=== PATIENT | female | born 1970 | race Asian ===

== ENCOUNTER → 2023-09-16 12:01 | Outpatient (REF) | payer BC, SELFPAY | LOC: HWWDC 12:01 | PROVIDERS: ATTENDING PHYSICIAN Physician Assistant Medical | DX: Z12.31 Encounter for screening mammogram for malignant neoplasm of breast (principal) | CPT/HCPCS: 77063; 77067 ==

== ENCOUNTER → 2024-04-01 14:10 | Outpatient (REF) | payer BC, SELFPAY | LOC: RAD 14:10 | PROVIDERS: ATTENDING PHYSICIAN Emergency Medicine | DX: S93.402A Sprain of unspecified ligament of left ankle, initial encounter (principal) | CPT/HCPCS: 73610 ==

== ENCOUNTER 2024-07-02 12:45 | Day surgery (SDC) | payer BC, SELFPAY ==
[2024-07-02] VITALS (13 sets, daily range): BP systolic 116–188; BP diastolic 58–89; BMI 30.2
[2024-07-02 04:08] LABS: % Basophils 0.4 % (0-2); % Eosinophils 2.1 % (0-6); % Immature Granulocytes 0.3 % (0-0.5); % Monocytes 4.9 % (1.7-9.3); % Neutrophils 82.3 % (42.2-75.2); Absolute Basophils 0.1 10^3/uL (0-0.2); Absolute Eosinophils 0.3 10^3/uL (0-0.7); Absolute Lymphocytes 1.3 10^3/uL (1.2-3.4); Absolute Monocytes 0.7 10^3/uL (0.1-0.6); Absolute Neutrophils 10.9 10^3/uL (1.4-6.5); Hematocrit 41.2 % (37.0-47.0); Hemoglobin 13.3 g/dL (12.0-16.0); Mean Corp Hgb Conc. 32.3 g/dL (33.0-37.0); Mean Corpuscular Hgb 26.4 pg (27.0-31.0); Mean Corpuscular Volume 81.7 fL (81.0-99.0); Mean Platelet Volume 11.3 fL (7.4-10.4); Nucleated Red Blood Cells % 0 %; Platelet Count 225 10^3/uL (130-400); Red Blood Cell Count 5.04 10^6/uL (4.20-5.40); Red Cell Dist. Width 14.1 % (11.5-14.5); White Blood Cell Count 13.2 10^3/uL (4.8-10.8)
[2024-07-02] MEDS: ZOFRAN 4 MG IV (04:08)
[2024-07-02] MEDS: DILAUDID 1 MG IV (04:12)
[2024-07-02 04:18] LABS: HCG, Serum Qualitative Screen Negative
[2024-07-02 04:22] LABS: ALT (SGPT) 16 U/L (0-35); AST (SGOT) 22 U/L (14-36); Albumin 4.8 g/dl (3.5-5.0); Alkaline Phosphatase 84 U/L (38-126); Blood Urea Nitrogen 20 mg/dl (7-17); Calcium 9.3 mg/dl (8.4-10.2); Carbon Dioxide 25 mmol/L (22-30); Chloride 103 mmol/L (98-107); Glucose 157 mg/dl (70-99); Lipase 96 U/L (23-300); Potassium 3.9 mmol/L (3.5-5.1); Sodium 140 mmol/L (135-145); Total Bilirubin 0.6 mg/dl (0.2-1.3); Total Protein 8.4 g/dl (6.3-8.2); eGFR > 60.00
[2024-07-02 04:29] LABS: Lactic Acid 1.7 mmol/L (0.7-2.0)
[2024-07-02] MEDS: DILAUDID 0.5 MG IV ×2 (06:51→09:36)
[2024-07-02] MEDS: NSS 1000 IV ×2 (06:53→09:25)
--- NOTE | 2024-07-02 07:05 | ED.GENMED ---
History of Present Illness
General
Chief Complaint: Abdominal Pain
Source: patient
Exam Limitations: none
Time Seen by Provider: 07/02/24 06:03
Nursing documentation reviewed up to this point in time: agreed with
History of Present Illness
History of Present Illness:
This is a 54-year-old woman who has history of eczema maintained on Humira. She presents with 3-day history of intermittent moderate upper abdominal pain that is most noted at nighttime waking her from sleep. Upper abdominal pain accompanied with
nausea, intermittent burping and a sense of abdominal bloating, fullness in her upper abdomen. She does note sporadic similar episodes in the past but no previous evaluations and pain she is experiencing tonight is much worse than any other
episodes. She denies chest pain or back pain, no fever no chills, no diarrhea or constipation.
No definitive aggravating or relieving factors.
No previous abdominal surgeries other than D and E.
Last menstrual period several months ago.
Past History
Past History
ED Past Medical History: Other (Eczema)
ED Past Surgical History: Gynecological (D and E)
Social History
Tobacco: Non-smoker
Alcohol: None
Personal:
Living: with family
Employment: Employed
Family History
Family History: Other (Noncontributory)
Phy Exam
Physical Exam
Physical Exam:
GENERAL: 54-year-old woman appears her stated age, awake and alert, appears in moderate distress related to pain. Cooperative.
EYE: pupils equal and reactive. anicteric
NECK: Supple, nontender, no meningismus, no significant adenopathy.
ENT: oral mucosa is moist. No rhinorrhea.
CARDIAC: Regular rate and rhythm. no murmur.
LUNGS: Clear breath sounds bilaterally, no acute respiratory distress, no wheezes/rales/rhonchi
ABDOMEN: Soft, mildly distended with moderate focal tenderness epigastric region accompanied with focal firm abdominal fullness at the epigastric region. No rigidity nor rebound. No cvat. Mildly hyperactive bowel sounds.
NEUROLOGICAL: Alert and oriented x3, no focal neuro deficits.
SKIN: Warm and dry, normal color, mild generalized eczematous rash.
MUSCULOSKELETAL: No C/C/E. peripheral pulses are full and equal b/l. No palpable tenderness.
PSYCH: Normal and appropriate interaction.
Sepsis
Sepsis Screening
Sepsis Assessment: Sepsis Ruled Out
Sepsis Screen
Sepsis Screen: Sepsis Ruled Out
Date: 07/02/24
Time: 08:11
Course
Orders/Labs/Results
Orders:
Orders
07/02/24 03:40
Cardiac Monitoring- Treatment ONCE
IV Insert/Care/Rem.- Treatment PRN
Test Result ONCE
07/02/24 03:41
Electrocardiogram (*1) Urgent
Reason for Study: Abdominal Pain
EKG- Treatment ONCE
07/02/24 03:56
Complete Blood Count/With Diff Urgent
Comprehensive Metabolic Panel Urgent
HCG, Serum Qualitative Screen Urgent
Comment: Notify provider if positive test present
Lactate Level [Lactic Acid] Urgent
Lipase Urgent
07/02/24 04:03
HYDROmorphone [Dilaudid] 1 mg IV NOW STA
Ondansetron Injectable [Zofran] 4 mg IV NOW STA
07/02/24 06:13
0.9% Sodium Chloride 1000 ml [Nss] 1,000 ml IV BOLUS
HYDROmorphone [Dilaudid] 0.5 mg IV NOW STA
07/02/24 06:14
CT Abd/pelvis W Iv Cont Urgent
Comment:
Reason For Exam: severe upper abd pain
07/02/24 07:19
US Abdomen Complete/Upper Urgent
Reason For Exam: acute upper abd pain, gall stone
07/02/24 07:30
Urinalysis Reflex To Culture Urgent
Date Specimen was Collected: 07/02/24
Time Specimen was Collected: 03:40
07/02/24 08:08
HYDROmorphone [Dilaudid] 0.5 mg IV Q3HPRN PRN
Ondansetron Injectable [Zofran] 4 mg IV Q6HPRN PRN
Zosyn 3.375 grams IVPB NOW Piperacillin/Tazo 3.375 Gram [Zosyn] 3.375 gram in 50 ml IV NOW
07/02/24 08:08
0.9% Sodium Chloride 1000 ml [Nss] 1,000 ml IV 150 mls/hr
Abnormal Lab Results
07/02/24
03:56
WBC 13.2 H 10^3/uL
(4.8-10.8)
MCH 26.4 L pg
(27.0-31.0)
MCHC 32.3 L g/dL
(33.0-37.0)
MPV 11.3 H fL
(7.4-10.4)
Absolute Neuts (auto) 10.9 H 10^3/uL
(1.4-6.5)
Absolute Monos (auto) 0.7 H 10^3/uL
(0.1-0.6)
Neutrophils % 82.3 H %
(42.2-75.2)
Lymphocytes % 10.0 L %
(20.5-51.1)
BUN 20 H mg/dl
(7-17)
Glucose 157 H mg/dl
(70-99)
Total Protein 8.4 H g/dl
(6.3-8.2)
07/02/24 03:56
07/02/24 03:56
Vital Signs
Initial and Last Documented VS:
Initial Vital Signs
Temp Pulse Resp BP Pulse Ox
98.1 F 50 20 182/84 100
07/02/24 02:29 07/02/24 02:29 07/02/24 02:29 07/02/24 02:29 07/02/24 02:29
Last Documented Vital Signs
Temp Pulse Resp BP Pulse Ox
97.4 F 64 19 149/85 100
07/02/24 04:00 07/02/24 06:45 07/02/24 06:45 07/02/24 07:23 07/02/24 07:23
MDM/Problems Addressed
Differential Diagnosis Includes:
Concern for acute biliary colic/cholecystitis, acute gastritis, gastric outlet obstruction, pancreatitis, colitis. ACS is much less likely.
Patient is somewhat more comfortable after IV dose of Dilaudid and Zofran. Will give additional IV pain medications, IV fluids and plan for CT abdomen and pelvis.
Labs thus far reveal mildly elevated white blood cell count of 13
Chemistries are unremarkable.
hCG is negative.
EKG is unremarkable, normal sinus rhythm, normal axis, normal intervals, no acute ST-T wave abnormality.
*Radiology
Radiology exam reviewed: radiology read reviewed
*Pulse Oximetry
Patient hypoxic: no
*EKG
Interpreted by ED Provider?: Yes
Interpretation: normal
Comparison EKG: no comparison EKG present
Rate: normal
Rhythm: sinus
[place]: normal axis
Interval: normal interval
QRS Pattern: normal QRS
Ischemia: no ischemia
*Tanning Consultant Interpretation
Rate: normal
Interpretation: normal
Rhythm: sinus
*Critical Care Note
Total Time (30-74mins, 75-104mins- exclusive of procedures): Not Applicable
Update Note
Update Note:
08:05
Patient is much more comfortable after additional Dilaudid but continues with significant right upper quadrant, epigastric pain with palpation.
CAT scan shows a large gallstone in the neck of the gallbladder with distended gallbladder, gallbladder wall thickening consistent with acute cholecystitis.
Will check ultrasound for completeness sake.
General surgery has been notified, will evaluate at bedside.
Will initiate IV antibiotics for acute cholecystitis.
ED Attending Note
-
Portions of this chart may have been created with voice recognition software.� Occasional wrong word or��sound alike� substitutions may have occurred due to the inherent limitations of voice recognition software.
Discharge Plan
Departure
Patient Disposition: Admit
Date of Disposition: 07/02/24
Time of Disposition: 08:12
Admit to: Med/Surg
Admit to doctor: Hu
Presentation/result/management discussed w/ accepting MD/DO: General surgery
Condition: Serious
Discharge Problem:
Acute calculous cholecystitis
Referrals:
Delores Geller PA-C [Family Provider] -
Interventions
Interventions:
*Risk Screen - Suicide Last Done: 07/02/24 02:29
*General Assessment Last Done: 07/02/24 02:29
*Neglect/Abuse Screening Last Done: 07/02/24 02:29
ED- Fall Risk Assessment Last Done: 07/02/24 04:36
*ED COVID-19 Vaccine History Last Done: 07/02/24 02:29
JL-Gaehby-Nevckcsmag Assessment Last Done: 07/02/24 04:36
Discharge Date and Time
Print Language: ANGUILLAN
[2024-07-02 08:37] LABS: Urine Albumin Negative (Neg - Trace); Urine Bilirubin Negative (Negative); Urine Character Clear (Clear); Urine Color Yellow; Urine Glucose 1+ (Negative); Urine Ketone 1+ (Negative); Urine Leukocyte 1+ (Negative); Urine Nitrite Negative (Negative); Urine Occult Blood 1+ (Negative); Urine Urobilinogen Negative (Neg - 1+)
[2024-07-02] MEDS: ZOSYN 50 IV (09:25)
[2024-07-02 10:08] LABS: Urine Bacteria Few (Negative); Urine Red Blood Cell 0-2 /HPF (0-2); Urine Squamous Cell >30 /LPF (Few); Urine White Cell 0-2 /HPF (0-5)
--- NOTE | 2024-07-02 10:39 | HPS.HSE ---
Family Physician
-
Family Physician: Delores Geller
Chief Complaint
-
RUQ pain
History of Present Illness
Ms Boland is a 54 yo female with a h/o eczema and prior D&C who presents through the ED with intermittent RUQ pain for the past 3 days usually in the evenings that worsened and persisted since last night accompanied by nausea and vomiting. She notes a
prior episode of similar pain around [place] which resolved and was self limiting. She denies fevers or chills. She does note one episode of diarrhea yesterday but otherwise notes no stool changes. On exam, she is significantly tender to the RUQ.
Medical History
Past Medical History
Past Medical History: Reports Other (Eczema)
Past Surgical History: Reports Gynocological (D&C)
Social History
Tobacco: Non-smoker
Alcohol: Occasional
Personal:
Living: With Family
Employment: Employed (Pre-K teacher)
Family History
Family History: Cancer (Breast)
Allergies / Home Medications
Allergies reflects when Allergies were last updated in [facility].
Home Medications with original date entered in [facility]
Allergy/Medication List:
Home meds: Dupixent [id number]
Patient Allergies
Allergy/AdvReac Type Severity Reaction Status Date / Time
latex Allergy Intermediate Rash Verified 07/02/24 02:28
sulfamethoxazole Allergy Mild Rash Verified 07/02/24 10:40
[From Bactrim]
trimethoprim [From Bactrim] Allergy Mild Rash Verified 07/02/24 10:40
lactase [From Dairy Aid] Allergy Unknown Verified 07/02/24 02:28
Review of Systems
-
History Source: Patient and Family
A 12 point ROS was completed and negative except as noted: Yes
Physical Exam
Vital Signs
Vital Signs
Temp Pulse Resp BP Pulse Ox
97.4 F 64 19 158/89 100
07/02/24 04:00 07/02/24 06:45 07/02/24 06:45 07/02/24 08:00 07/02/24 08:00
Physical Exam
General: Well Developed and Well Nourished
HEENT: Moist mucous membranes
Respiratory: Non Labored Respirations
GI: Soft, Non Distended and Tender (RUQ)
Skin: Warm, Dry and Rash (to face)
Neuro: Awake, Alert and AO x 3
Psych: Calm
Laboratory Results
-
07/02/24 03:56
07/02/24 03:56
Laboratory Results
Lactic Acid 1.7 mmol/L (0.7-2.0) 07/02/24 03:56
Total Bilirubin 0.6 mg/dl (0.2-1.3) 07/02/24 03:56
AST 22 U/L (14-36) 07/02/24 03:56
ALT 16 U/L (0-35) 07/02/24 03:56
Alkaline Phosphatase 84 U/L (38-126) 07/02/24 03:56
Lipase 96 U/L (23-300) 07/02/24 03:56
Data Reviewed
-
CT Scan: Image Personally Visualized and interpreted, Report Reviewed by me, Discussed with Physician, Discussed with Patient and Discussed with Family
Ultrasound: Image Personally Visualized and interpreted, Report Reviewed by me, Discussed with Physician, Discussed with Patient and Discussed with Family
Lab Data: Labs Reviewed by me, Discussed with Physician, Discussed with Patient and Discussed with Family
Impression/Plan
-
IMPRESSION: 54 yo female with prior episodes of biliary colic last month with reports of intermittent RUQ in the evenings. Now with more frequent episodes for the past 3 days until last night when her discomfort to the RUQ became constant and was
assoicated with n/v/d. CT and US imaging consistent with acute calculous cholecystitis. AFVSS. Mild leukocytosis. LFT's WNL.
PLAN:
NPO for OR later today for lap cholecystectomy
Continue IV zosyn which was initiated in the ED
Continue IVF while NPO
Analgesics/Antiemetics prn
SCD's perioperatively
--- NOTE | 2024-07-02 15:49 | W.IMMPOSTOP ---
Surgical Immed Post Op Note
-
Primary Surgeon: Zach Lui MD
Assisting Surgeon: MARGO Oliver NP
Pre-op Diagnosis: Acute cholecystitis
Post-op Diagnosis: Acute on chronic cholecystitis
Procedure Performed: Laparoscopic cholecystectomy
Anesthesia Type: General
Specimen / Cultures: Gallbladder
Estimated Blood Loss: 15 mL
IVF: 1.5 L
Complications: None
Operative Findings: Distended and inflamed gallbladder with significant thickening of the wall, more consistent with an acute on chronic picture; obtain the critical view of safety and clipped the cystic duct and cystic artery; cauterized the liver
bed; no bile spillage
--- NOTE | 2024-07-02 15:51 | OR.RPT ---
Operative Report
Operative Report
DATE OF OPERATION: 07/02/2024
SURGEON: Zach Lui MD
PREOPERATIVE DIAGNOSIS: Acute cholecystitis
POSTOPERATIVE DIAGNOSIS: Acute on chronic cholecystitis
OPERATION: Laparoscopic cholecystectomy
ASSISTANTS:
1. MARGO Oliver, LUIS EDUARDO
ANESTHESIA: General
ESTIMATED BLOOD LOSS: 15 mL
FINDINGS:
1. Gallbladder distended with thickened wall, more consistent with an acute on chronic cholecystitis; dome of gallbladder intrahepatic
2. Identified the critical view of safety and clipped the cystic duct and cystic artery
SPECIMENS:
1. Gallbladder
DRAINS: None
COMPLICATIONS: No immediate complications.
INDICATIONS: The patient is a 54-year-old female who presented with 3 days of right upper quadrant abdominal pain that became more severe and consistent after 2 days. She has been having intermittent pain since May 2024. Her WBC was 13.[address] scan showed gallbladder wall thickening with pericholecystic fluid and a gallstone in the neck of the gallbladder. An ultrasound confirmed these findings. Therefore, I recommended a cholecystectomy. The operation was discussed with the
patient in detail, including the risks, benefits and alternatives. Risks described included, but not limited to, bleeding, infection, damage to nearby structures (i.e., common bile duct, liver, bowel), conversion to open, and anesthetic risks. The
patient understood and agreed to proceed. The consent was signed and placed in the chart.
PROCEDURE IN DETAIL: The patient was taken to the operating room and placed on the operating table in supine position. Sequential compression devices were placed bilaterally. General anesthesia was then induced and the patient was intubated without
complication. The patient was secured to the bed with 2 seatbelts and the arms were secured to the armboards. A footboard was placed in case steep reverse Trendelenburg positioning becomes necessary. Anesthesia placed an orogastric tube. A dose
of IV Zosyn was given pre-incision. The abdomen was then prepped and draped in the usual sterile fashion. A time-out was then performed verifying the correct patient, procedure, operative site, positioning, and special equipment.
An 11 blade scalpel was used to create a stab incision at Gooden's point. The Veress needle was carefully inserted. After three clicks, insufflation was attached to the Veress needle and an opening pressure of less than 8 mmHg was noted. The
abdomen was insufflated to a pressure of 15 mmHg. The patient tolerated insufflation well. Next, the 11 blade scalpel was used to create a 5 mm incision along the midline about 15 cm from the target anatomy. Using the 5-0 camera and the Optiview
trocar, the first 5 mm port was placed under direct visualization ensuring no injury to adjacent organs. A 5-30 camera was then connected and inserted, and the abdomen was inspected. No injury from initial trocar placement or Veress needle
placement was noted. The gallbladder was noted to be dilated and inflamed. Additional trocars were then inserted under direct visualization in the following locations: a 12 mm trocar in the right epigastrium just lateral to the falciform ligament
and two 5 mm trocars along the right costal margin in the anterior axillary line and mid-axillary line. The table was placed in reverse Trendelenburg position with the right side up.
A laparoscopic needle was used to aspirate bile from the gallbladder as it was too distended to be grasped. About 35 mL of bile was aspirated. The dome of the gallbladder was grasped with a locking atraumatic grasper and retracted over the dome of
the liver. Due to the significantly thickened wall of the infundibulum, this was unable to be grasped, but was retracted by pushing it 1 where the other. The peritoneum was then scored and incised with electrocautery along the medial and lateral
margins of the gallbladder. Using a combination of hook cautery and blunt dissection, the cystic duct and cystic artery were identified and circumferentially dissected. The critical view of safety was achieved. However, the cystic duct was
relatively short, as well as the cystic artery. The cystic duct and the cystic artery were clipped and divided such that 2 clips remained on the cystic duct stump and 2 clips remained on the cystic artery stump.
The gallbladder was then dissected from its peritoneal attachments to the gallbladder fossa by electrocautery. About midway up the gallbladder fossa, the gallbladder became more intrahepatic and the plane between the liver and gallbladder was
extremely narrow, consistent with a more chronic process in addition to the acute cholecystitis. Meticulous dissection was used to avoid injury to the liver. Prior to complete removal of the gallbladder, the gallbladder fossa was closely
evaluated. No liver injuries were identified and hemostasis was assured using electrocautery. The gallbladder was then placed in an endoscopic retrieval bag through the epigastric port and set to the side. The gallbladder fossa was then irrigated
with saline and suctioned. There was no evidence of bleeding from the gallbladder fossa or cystic artery or leakage of bile from the cystic duct stump. Then, the specimen was removed from the epigastric port. Due to the size of the inflamed
gallbladder, the fascia had to be stretched with a Keturah clamp and slightly enlarged with electrocautery. The gallbladder was passed off as specimen. The fascia of the epigastric port was closed with an 0 Vicryl figure-of-8 stitch using
laparoscopic visualization and a suture passer. The remaining ports were removed under direct vision and no bleeding was noted from the trocar sites. The laparoscope was withdrawn and the umbilical trocar removed. The abdomen was allowed to
collapse. The port sites were injected with 30mL of 0.25% Marcaine with epinephrine mixed with 0.3mg of dexamethasone for local anesthesia. The skin was closed with subcuticular sutures of 4-0 Monocryl and Dermabond.
At this point, the procedure was complete. All needle, sponge and instrument counts were correct. The patient tolerated the procedure well. The patient was extubated without complication and was transferred to the recovery room in stable condition.
Of note, MARGO Oliver, CRUSHER SUPERVISOR, office administrative assistant, was necessary during this procedure for traction, countertraction, and exploratory purposes. I was present for the entire duration of the case.
DICTATED BY: Zach Lui MD
--- NOTE | 2024-07-02 17:22 | PTCARENOTE ---
Transfer of patient care, report received from PACU @ 1600. Pt AAOx3, and very sleep, rates pain 5 and does not want any additional pain medicine at this time. vss lungs CTA, INT to right arm patent. Abdomen soft and very tender, Two incision sites
on right side of abdomen and one incision site above umbilicus noted with no drainage from any sites. Pt due to void and instructed patient to call from assistance OOB to bathroom. Patient verbalizes understanding. Seq thigh hi teds on and
at bedside. Instructed patient to order a clear liquid tray. Oriented to room, callbell within reach.
[2024-07-02] MEDS: TORADOL 15 MG IV (20:36)
[2024-07-02] MEDS: TYLENOL 1000 MG PO (23:43)
[2024-07-03] MEDS: TORADOL 15 MG IV ×2 (02:00→07:56)
[2024-07-03 05:43] LABS: % Basophils 0.1 % (0-2); % Immature Granulocytes 0.4 % (0-0.5); % Lymphocytes 4.7 % (20.5-51.1); % Monocytes 8.2 % (1.7-9.3); % Neutrophils 86.6 % (42.2-75.2); Absolute Immature Granulocytes 0.1 10^3/uL (0-0.05); Absolute Lymphocytes 0.8 10^3/uL (1.2-3.4); Absolute Monocytes 1.4 10^3/uL (0.1-0.6); Absolute Neutrophils 14.4 10^3/uL (1.4-6.5); Hematocrit 37.9 % (37.0-47.0); Hemoglobin 12.4 g/dL (12.0-16.0); Mean Corp Hgb Conc. 32.7 g/dL (33.0-37.0); Mean Corpuscular Volume 82.4 fL (81.0-99.0); Mean Platelet Volume 11.9 fL (7.4-10.4); Nucleated Red Blood Cells % 0 %; Platelet Count 223 10^3/uL (130-400); Red Cell Dist. Width 14.3 % (11.5-14.5); White Blood Cell Count 16.7 10^3/uL (4.8-10.8)
[2024-07-03] MEDS: TYLENOL 1000 MG PO ×2 (06:16→13:37)
[2024-07-03 06:28] VITALS: BP 118/66
[2024-07-03 06:28] LABS: ALT (SGPT) 117 U/L (0-35); AST (SGOT) 104 U/L (14-36); Albumin 3.6 g/dl (3.5-5.0); Alkaline Phosphatase 80 U/L (38-126); Blood Urea Nitrogen 15 mg/dl (7-17); Calcium 8.5 mg/dl (8.4-10.2); Carbon Dioxide 26 mmol/L (22-30); Chloride 103 mmol/L (98-107); Estimated Creatinine Clearance 90 ml/min; Glucose 126 mg/dl (70-99); Potassium 3.6 mmol/L (3.5-5.1); Sodium 134 mmol/L (135-145); Total Bilirubin 0.9 mg/dl (0.2-1.3); Total Protein 6.5 g/dl (6.3-8.2); eGFR > 60.00
[2024-07-03 07:44] VITALS: BP 124/70
--- NOTE | 2024-07-03 08:13 | PTCARENOTE ---
Lap Umbilical puncture site and two punctures site to right abdomen.
--- NOTE | 2024-07-03 09:55 | W.PN.GS2 ---
Addendum entered and electronically signed by Zach Lui MD 07/03/24 16:18:
I saw and examined the patient.
The LINE UP EXAMINER's note was reviewed and I agree with the note.
Comment:
Feeling better this morning. No N/V. Pain better controlled.
Ordered for regular diet and if tolerating, okay for discharge today. Due to mild bump in leukocytosis and LFTs (likely reactive due to surgery), will order for repeat labs in 1 week. Follow-up with me in 2 weeks time, provided my business card.
Instructed to call or go to the ED if any worsening symptoms, such as N/V, worsening abdominal pain or fevers.
Original Note:
Today's Communication / Plan
-
Dispo planning
Assessment / Plan
-
54 yo female who presented with ACC now POD #1 lap vasquez
AFVSS
Following expected post operative course
Bilirubin wnl, reactive transaminitis noted
Leukocytosis present, reactively trended up
--Regular diet as tolerated
--Analgesics prn
--Repeat labs as OP in one week
--Discharge to home
Subjective Data
-
Date of Service: July 03, 2024
Patient seen and examined at bedside with Dr. Lui. Incisional soreness present but pain well managed. Denies n/v. Not yet moving bowels.
Objective Data
-
Intake and Output
07/02/24 07/03/24 07/04/24
06:59 06:59 06:59
Intake Total 230 / 230
Balance 230 / 230
Intake:
Oral fluids 180 / 180
IV fluids (Total) 50 / 50
Normosol 50 / 50
Other:
Number of approximated LARGE 1
amounts of urine
How many times incontinent 1
MODERATE amount urine
Vital Signs
Temp Pulse Resp BP Pulse Ox
97.8 F 69 18 124/70 98
07/03/24 07:44 07/03/24 07:44 07/03/24 07:44 07/03/24 07:44 07/03/24 07:44
Lab Results
07/03/24 05:10
07/03/24 05:10
Calcium 8.5 mg/dl (8.4-10.2) 07/03/24 05:10
Total Bilirubin 0.9 mg/dl (0.2-1.3) 07/03/24 05:10
AST 104 U/L (14-36) H 07/03/24 05:10
ALT 117 U/L (0-35) H 07/03/24 05:10
Alkaline Phosphatase 80 U/L (38-126) 07/03/24 05:10
Total Protein 6.5 g/dl (6.3-8.2) D 07/03/24 05:10
Albumin 3.6 g/dl (3.5-5.0) 07/03/24 05:10
Physical Exam
-
NAD
ABD soft, nd, tenderness to incisions (expected), no rebound/rigidity/guarding
Incisions with intact glue, some ecchymosis without hematoma
--- NOTE | 2024-07-03 09:58 | W.DS.TRANS ---
DC Summary - Banquet Server On Call
-
Discharge Instructions:
Discharge Diagnosis/Procedures Acute calculous cholecystitis
Diet As tolerated
Additional Diets If you notice loose stools after surgery, switch
to a low fat diet
Activity No strenuous activity
Additional Activity Do not lift over 15lbs for the next 4 weeks
[address] Restrictions Wait until comfortable twisting/off narcotics
Bathing Restrictions OK to Shower
Blood Work CBC and LFT's in one week
Wound Care The glue over your incisions will flake off in 2
-3 weeks on its own. Avoid scrubbing or picking
off the glue. Do not soak in a tub or pool for 2
weeks.
Instructions:
Stand-Alone Forms:
Changes to Home Medications: No
Discharge Medications:
DC Medications w/original date entered in [employer]
calcium carbonate (Tums) 200 mg PO BIDPRN PRN gerd 07/02/24
dupilumab 300 mg/2 mL subcutaneous syringe (Dupixent) 300 mg SC Q2W 07/02/24
acetaminophen 325 mg tablet 650 mg (2 x 325 mg) PO Q4HPRN PRN mild pain #1 tab 07/03/24
ibuprofen 200 mg tablet 400 - 600 mg (2 - 3 x 200 mg) PO Q6HPRN PRN moderate pain #1 tab 07/03/24
oxycodone 5 mg tablet 5 mg PO Q4HPRN PRN breakthrough/severe pain #5 tabs 07/03/24
Home Medication Changes
Pending Results: No
--- NOTE | 2024-07-03 14:20 | CM ---
Met with pt at bedside
Pt reports she lives with her and 2 teen age children in a 2 story home; 3 steps to enter, 10 steps to 2nd fl; + 1/2 bath on FF
Independent, employed PT, drives
DME - none
SNF/HH - no past hx
Has ride at discharge
PCP - Delores AVILA @ [facility]
Pharm - [facility]
Plan - anticipate home no needs
--- NOTE | 2024-07-03 14:41 | PTCARENOTE ---
pt d/c instruction reviewed with pt, pt transported by wheelchair to main entrance. INT D/C.
== END 2024-07-03 14:20 | disposition home or self-care (01) ==
LOC: PACU 12:45
PROVIDERS: ATTENDING PHYSICIAN Surgery; EMERGENCY PHYSICIAN Emergency Medicine; FAMILY PHYSICIAN Physician Assistant Medical
DX: K80.12 Calculus of gallbladder with acute and chronic cholecystitis without obstruction (principal)
CPT/HCPCS: 47562; 88304; 74177; 76700; 80053; 81003; 81015; 83605; 83690; 84703; 85025; 87086; 93005; 96361; 96365; 96375; 96376; 99285; Q9967

== ENCOUNTER → 2024-07-13 12:15 | Outpatient (REF) | payer BC, SELFPAY ==
[2024-07-13 12:39] LABS: % Basophils 1.1 % (0-2); % Eosinophils 4.6 % (0-6); % Immature Granulocytes 0.4 % (0-0.5); % Lymphocytes 20.6 % (20.5-51.1); % Monocytes 8.2 % (1.7-9.3); % Neutrophils 65.1 % (42.2-75.2); Absolute Basophils 0.1 10^3/uL (0-0.2); Absolute Eosinophils 0.3 10^3/uL (0-0.7); Absolute Lymphocytes 1.5 10^3/uL (1.2-3.4); Absolute Monocytes 0.6 10^3/uL (0.1-0.6); Absolute Neutrophils 4.8 10^3/uL (1.4-6.5); Hematocrit 42.2 % (37.0-47.0); Hemoglobin 13.2 g/dL (12.0-16.0); Mean Corp Hgb Conc. 31.3 g/dL (33.0-37.0); Mean Corpuscular Hgb 26.2 pg (27.0-31.0); Mean Corpuscular Volume 83.7 fL (81.0-99.0); Mean Platelet Volume 10.8 fL (7.4-10.4); Nucleated Red Blood Cells % 0 %; Platelet Count 315 10^3/uL (130-400); Red Blood Cell Count 5.04 10^6/uL (4.20-5.40); Red Cell Dist. Width 14.1 % (11.5-14.5); White Blood Cell Count 7.3 10^3/uL (4.8-10.8)
[2024-07-13 13:27] LABS: ALT (SGPT) 76 U/L (0-35); AST (SGOT) 34 U/L (14-36); Albumin 3.9 g/dl (3.5-5.0); Alkaline Phosphatase 126 U/L (38-126); Direct Bilirubin 0.1 mg/dl (0.0-0.4); Total Bilirubin 0.5 mg/dl (0.2-1.3); Total Protein 7.3 g/dl (6.3-8.2)
== END ==
LOC: REG 12:15
PROVIDERS: ATTENDING PHYSICIAN Registered Nurse; FAMILY PHYSICIAN Physician Assistant Medical; OTHER PHYSICIAN Surgery
DX: K81.9 Cholecystitis, unspecified (principal)
CPT/HCPCS: 36415; 80076; 85025

== ENCOUNTER → 2024-10-27 13:06 | Outpatient (REF) | payer BC, SELFPAY | LOC: HWWDC 13:06 | PROVIDERS: ATTENDING PHYSICIAN Physician Assistant Medical | DX: Z12.31 Encounter for screening mammogram for malignant neoplasm of breast (principal) | CPT/HCPCS: 77063; 77067 ==

== ENCOUNTER 2024-11-22 06:24 | Day surgery (SDC) | payer OTHER, SELFPAY | END 2024-11-22 10:33 | disposition home or self-care (01) | LOC: GI 06:24 | PROVIDERS: ATTENDING PHYSICIAN Surgery | DX: Z12.11 Encounter for screening for malignant neoplasm of colon (principal); K64.8 Other hemorrhoids; K63.5 Polyp of colon | CPT/HCPCS: 45380; 88305 ==